=== PATIENT | female | born 1995 | race Caucasian/White ===

== ENCOUNTER 2018-03-15 03:33 | Emergency (ER) | payer OTHER ==
--- NOTE | 2018-03-15 04:46 | ER Document Report ---
HPI - HPI Patient complains to provider of: sore throat Pain Level: 2 Context: Patient is a 22-year-old female presenting to the emergency department complaining of cough congestion and sore throat for the last 6 days. Patient states she has also had 3 episodes total of posttussive vomiting. Patient denies fever, diarrhea, chest pain, shortness of breath, abdominal pain, dysuria , vaginal discharge. Past medical history: None Medications: control Allergies: None Surgeries: None Patient denies illicit drug use, cigarette smoking, alcohol use. - EENT EENT: REPORTS: Sore Throat Past Medical History - General Information source: Patient - Social History Smoking Status: Never Smoker Chew tobacco use (# tins/day): No Frequency of alcohol use: None Drug Abuse: None Lives with: Family Family History: Reviewed & Not Pertinent Patient has suicidal ideation: No Patient has homicidal ideation: No Renal/ Medical History: Denies: Hx Peritoneal Dialysis Vertical Provider Document - CONSTITUTIONAL Agree With Documented VS: Yes Notes: GENERAL: Alert, interacts well. No acute distress. HEAD: Normocephalic, atraumatic. EYES: Pupils equal, round, and reactive to light. Extraocular movements intact. ENT: Oral mucosa moist, tongue midline. Nares patent, nonswollen turbinates, no nasal septal hematoma, TM's intact, not erythematous nonbulging. Pharynx mildly erythematous, no palatal petechia, no exudate noted. No frontal or ethmoid sinus tenderness. NECK: Full range of motion. Supple. Trachea midline. No lymphadenopathy appreciated LUNGS: Clear to auscultation bilaterally, no wheezes, rales, or rhonchi. No respiratory distress. HEART: Regular rate and rhythm. No murmur ABDOMEN: Soft, non-tender. Non-distended. Bowel sounds present in all 4 quadrants. EXTREMITIES: Moves all 4 extremities spontaneously. No edema, normal radial and dorsalis pedis pulses bilaterally. No cyanosis. BACK: no cervical, thoracic, lumbar midline tenderness. No saddle anesthesia, normal distal neurovascular exam. NEUROLOGICAL: Alert and oriented x3. Normal speech. cranial nerves II through XII grossly intact. PSYCH: Normal affect, normal mood. SKIN: Warm, dry, normal turgor. No rashes or lesions noted. Course - Re-evaluation Re-evalutation: 03/15/18 04:49 Strep test ordered in triage. Strep is negative. Will treat for upper respiratory infection. Chela Archer are category C in , will get an ECG prior to discharge. Return precautions discussed with patient - Vital Signs Vital signs: Temp Pulse Resp BP Pulse Ox 98.6 F 103 H 15 147/76 H 98 03/15/18 03:40 03/15/18 03:40 03/15/18 03:40 03/15/18 03:40 03/15/18 03:40 Discharge - Discharge Clinical Impression: Upper respiratory infection Qualifiers: URI type: unspecified viral URI Qualified Code(s): J06.9 - Acute upper respiratory infection, unspecified Pharyngitis Qualifiers: Pharyngitis/tonsillitis etiology: unspecified etiology Qualified Code(s): J02.9 - Acute pharyngitis, unspecified Condition: Stable Disposition: HOME, SELF-CARE Instructions: Acetaminophen, Sore Throat ([facility]), Upper Respiratory Illness ([facility]) , Viral Syndrome ([facility]) Prescriptions: Benzonatate [Morasalon Perles 100 mg Capsule] 100 mg PO Q8HP PRN #40 capsule PRN Reason:
[2018-03-15 05:32] VITALS: BP 125/71
== END 2018-03-15 05:32 | disposition home or self-care (01) ==
LOC: ER 03:33
DX: J06.9 Acute upper respiratory infection, unspecified (principal); J02.9 Acute pharyngitis, unspecified
CPT/HCPCS: 81025; 87070; 87880; 99283